=== PATIENT | male | born 1965 | race Caucasian/White ===

== ENCOUNTER 2024-01-23 11:22 | Emergency (ER) | payer BC, SELFPAY ==
[2024-01-23 11:25] VITALS: BP 135/100
--- NOTE | 2024-01-23 12:01 | ED.GENMED ---
History of Present Illness
General
Chief Complaint: Breathing Problem
Time Seen by Provider: 01/23/24 11:52
History of Present Illness
History of Present Illness:
58-year-old male with history of hyperlipidemia presents to the emergency department for evaluation of shortness of breath. He states that for the past 4 to 5 days he has had a minimally productive cough and cold symptoms, did not feel short of
breath until this morning. Also notes that he developed a burning/tingling sensation to bilateral lower legs as well as bilateral hands. Denies any fevers, chills, or sweats. No chest pain nausea or vomiting. Former smoker, denies history of
asthma or COPD. No ill contacts at home.
Past History
Past History
ED Past Medical History: None and Other (Patient believes he may have restless leg syndrome chronically )
ED Past Surgical History: Other (Noncontributory )
Social History
Tobacco: Former smoker
Alcohol: Occasional
Drug: None
Personal:
Living: with family
Employment: Employed
Family History
Family History: CAD and Other; Negative Early CAD
Review of Systems
Review of Systems
Allergies reviewed?: Yes
All Other Systems: ROS reviewed and negative except as documented in HPI and ROS
Phy Exam
Physical Exam
Physical Exam:
GEN: Well appearing, NAD, WDWN
Eyes: PERRLA, EOMs intact, no scleral icterus
HENT: NCAT, oral mucosa moist, no JVD, no cervical adenopathy.
Lungs: Normal respiratory effort. Coarse expiratory wheezes heard throughout all lung rust, does not clear with cough.
Cardiac: RRR, no M/R/G, no peripheral edema. Radial pulses 2+ bilat
Neuro: AO x 3, no focal deficits to BUE/BLE, normal sensation throughout
MSK: No gross deformity or ecchymosis. No edema. No digital clubbing
Skin: No rashes, petechiae. Normal color, no pallor or jaundice.
Psych: Calm, cooperative, proper hygiene
Scores
Heart Failure Risk
Heart Failure Risk Score: Not Applicable
Course
Orders/Labs/Results
Orders:
Orders
01/23/24 11:28
Electrocardiogram (*1) Urgent
Reason for Study: Shortness of Breath
EKG- Treatment ONCE
01/23/24 11:37
Complete Blood Count/With Diff Urgent
Comprehensive Metabolic Panel Urgent
NT-proBNP Urgent
Comment: ADD
Troponin I Urgent
01/23/24 12:01
Add On- LAB Urgent
Tests Added?: BNP
Ipratropium/Albuterol Sulfate [Duoneb] 3 ml INH R NOW ONE
CR Chest - 2 Views Urgent
Comment:
Reason For Exam: SOB
Abnormal Lab Results
01/23/24
11:37
WBC 4.7 L 10^3/uL
(4.8-10.8)
Monocytes % 12.1 H %
(1.7-9.3)
Carbon Dioxide 17 L mmol/L
(22-30)
Glucose 112 H mg/dl
(70-99)
AST 67 H U/L
(17-59)
ALT 140 H U/L
(0-50)
01/23/24 11:37
01/23/24 11:37
Vital Signs
Initial and Last Documented VS:
Initial Vital Signs
Temp Pulse Resp BP Pulse Ox
98.0 F 111 16 135/100 98
01/23/24 11:25 01/23/24 11:25 01/23/24 11:25 01/23/24 11:25 01/23/24 11:25
Last Documented Vital Signs
Temp Pulse Resp BP Pulse Ox
98.0 F 111 16 116/87 97
01/23/24 11:25 01/23/24 11:25 01/23/24 11:25 01/23/24 13:43 01/23/24 13:43
MDM/Problems Addressed
MDM/Problems Addressed:
Patient remained diffusely wheezy after neb treatment. Labs are reassuring and chest x-ray shows no acute infiltrate. Mild leukopenia likely indicative of viral syndrome. Will treat supportively with corticosteroids and bronchodilators. Do not
see indication for antibiotics at this time
Comment
Comment:
EKG independently interpreted by me shows normal sinus rhythm at a rate of 89, there are lateral ST depressions that are new compared to prior, otherwise no ST elevations, QTc of 496
*Critical Care Note
Total Time (30-74mins, 75-104mins- exclusive of procedures): Not Applicable
ED Attending Note
-
Portions of this chart may have been created with voice recognition software.� Occasional wrong word or��sound alike� substitutions may have occurred due to the inherent limitations of voice recognition software.
Discharge Plan
Departure
Patient Disposition: Home (Routine Discharge)
Date of Disposition: 01/23/24
Time of Disposition: 13:30
Patient with high blood pressure during this ER visit?: No
Discharge Problem:
Acute bronchitis
Instructions: Acute Bronchitis, Adult (DC)
Prescriptions:
New
prednisone 20 mg tablet
40 mg PO DAILY 5 Days Qty: 10 0RF
albuterol sulfate 90 mcg/actuation HFA aerosol inhaler
2 puff inhalation QID PRN (Reason: shortness of breath or wheezing) Qty: 6.7 0RF
No Action
aspirin 81 MG tablet,chewable
81 mg PO
Referrals:
NONE,* [Family Provider] -
Interventions
Interventions:
*Risk Screen - Suicide Last Done: 01/23/24 11:25
*General Assessment Last Done: 01/23/24 12:10
*Neglect/Abuse Screening Last Done: 01/23/24 11:25
ED- Cardiac Assessment Last Done: 01/23/24 12:10
ED- Pulmonary Assessment Last Done: 01/23/24 12:10
Discharge Date and Time
Print Language: SERBIAN
[2024-01-23 12:05] LABS: % Basophils 1.1 % (0-2); % Eosinophils 3.4 % (0-6); % Immature Granulocytes 0.2 % (0-0.5); % Monocytes 12.1 % (1.7-9.3); % Neutrophils 52.2 % (42.2-75.2); Absolute Basophils 0.1 10^3/uL (0-0.2); Absolute Eosinophils 0.2 10^3/uL (0-0.7); Absolute Lymphocytes 1.5 10^3/uL (1.2-3.4); Absolute Monocytes 0.6 10^3/uL (0.1-0.6); Absolute Neutrophils 2.5 10^3/uL (1.4-6.5); Hematocrit 48.8 % (39.0-52.0); Hemoglobin 16.8 g/dL (13.0-18.0); Mean Corp Hgb Conc. 34.4 g/dL (33.0-37.0); Mean Corpuscular Hgb 30.2 pg (27.0-31.0); Mean Corpuscular Volume 87.8 fL (80.0-94.0); Mean Platelet Volume 10.3 fL (7.4-10.4); Nucleated Red Blood Cells % 0 % (-); Platelet Count 188 10^3/uL (130-400); Red Blood Cell Count 5.56 10^6/uL (4.70-6.10); Red Cell Dist. Width 13.5 % (11.5-14.5); White Blood Cell Count 4.7 10^3/uL (4.8-10.8)
[2024-01-23] MEDS: DUONEB 3 ML INH (12:21)
[2024-01-23 12:22] LABS: ALT (SGPT) 140 U/L (0-50); AST (SGOT) 67 U/L (17-59); Albumin 4.8 g/dl (3.5-5.0); Alkaline Phosphatase 81 U/L (38-126); Blood Urea Nitrogen 20 mg/dl (9-20); Calcium 9.8 mg/dl (8.4-10.2); Carbon Dioxide 17 mmol/L (22-30); Chloride 107 mmol/L (98-107); Glucose 112 mg/dl (70-99); Potassium 4.3 mmol/L (3.5-5.1); Sodium 141 mmol/L (135-145); Total Bilirubin 1.2 mg/dl (0.2-1.3); Total Protein 7.8 g/dl (6.3-8.2); eGFR > 60.00
[2024-01-23 12:32] LABS: Troponin I < 0.012 ng/ml
[2024-01-23 13:43] VITALS: BP 116/87
[2024-01-23 13:48] LABS: NT-proBNP < 20.0 pg/ml
== END 2024-01-23 14:00 | disposition home or self-care (01) ==
LOC: EMR 11:22
PROVIDERS: EMERGENCY PHYSICIAN Emergency Medicine
DX: J20.9 Acute bronchitis, unspecified (principal); E78.5 Hyperlipidemia, unspecified; Z87.891 Personal history of nicotine dependence
CPT/HCPCS: 99285; 94640; 71046; 80053; 83880; 84484; 85025; 93005